=== PATIENT | male | born 1965 | race Caucasian/White ===

== ENCOUNTER → 2016-11-27 | Outpatient (CLI) | payer OTHER ==
[~2016-11-27] MED LIST: CRANBERRY200 MG PO; FISH OIL1000 MG PO; FLONASE ALLER15.8 ML NOSE; MUCINEX600 MG PO; TYLENOL/COD#31 TAB PO; VITAMIN D1000 UNIT PO
== END | disposition disaster alternative care site (69) ==
LOC: GRAD 11:15
DX: Z09 Encounter for follow-up examination after completed treatment for conditions other than malignant neoplasm (principal); N20.0 Calculus of kidney

== ENCOUNTER → 2017-02-26 | Outpatient (CLI) | payer OTHER | END | disposition disaster alternative care site (69) | LOC: GRAD 02-19 14:30 | DX: Z48.816 Encounter for surgical aftercare following surgery on the genitourinary system (principal); I87.8 Other specified disorders of veins; Z87.442 Personal history of urinary calculi ==